=== PATIENT | male | born 1965 | race Caucasian/White ===

== ENCOUNTER → 2017-02-10 | Outpatient (CLI) | payer OTHER ==
[~2017-02-10] MED LIST: GADAVIST IV PRN; IBUP-1050 PO
--- NOTE | 2017-02-10 09:36 | DIAGNOSTIC IMAGING REPORT ---
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 COMPARISON STUDY: None. FINDINGS: Visualized intracranial internal carotid arteries, distal vertebral arteries, and basilar artery are widely patent. There is no significant stenosis, occlusion, or aneurysm seen within the bilateral ACAs, MCAs, or roof slater. Incidental note is made of a persistent right posterior circulation which is considered to be a normal variant. IMPRESSION: No significant stenosis, occlusion, or aneurysm within the nondalton of [place]. Electronically signed by: Roberto Carlos Russo M.D. 02/10/2017 9:35 AM Dictated Date/Time: 02/10/2017 9:31 AM
--- NOTE | 2017-02-10 10:00 | DIAGNOSTIC IMAGING REPORT ---
MRI OF THE BRAIN COMBO CLINICAL HISTORY: Left oculomotor nerve palsy. COMPARISON STUDY: No priors. TECHNIQUE: MRI of the brain was performed utilizing various T1 and T2-weighted sequences in the axial, sagittal, and coronal planes. Contrast-enhanced sequences were acquired following the administration of 12.5 cc of Gadavist. FINDINGS: Brain parenchyma: There are scattered tiny foci of periventricular microangiopathic change. The brain parenchyma is otherwise normal in appearance. There is no hemorrhage or mass effect. There is no restricted diffusion to suggest acute ischemia. A small developmental venous anomaly is incidentally noted in the right basal ganglia. No enhancing mass lesion is identified on the postcontrast images. Salomon-white matter differentiation is preserved. No extra-axial fluid collection is seen. The cerebellar tonsils are normal in configuration. Ventricles, sulci, and cisterns: Normal in configuration. Pituitary and sella: Unremarkable. Intracranial vasculature: Normal flow voids are maintained at the skull base. Orbits: The bony orbits are grossly intact. Orbital contents are normal in appearance. Sinuses and mastoids: A large retention cyst in the right maxillary antrum. Mucosal thickening is present within both maxillary antra. An air-fluid level is noted on the left. Mild to moderate mucosal thickening is seen within the ethmoid sinuses. Trace mucosal thickening is seen within the frontal sinuses. The mastoid air cells are clear. Calvarium: Unremarkable. Cervical cord: Partially visualized cervical spinal cord is normal in morphology and signal intensity. IMPRESSION: 1. No acute intracranial abnormality. 2. Paranasal sinus disease as above. Electronically signed by: Elias Villeda M.D. 02/10/2017 9:59 AM Dictated Date/Time: 02/10/2017 9:56 AM
== END | disposition home or self-care (01) ==
LOC: C.MRIBC 07:39
PROVIDERS: ATTEND Ophthalmology
DX: H49.02 Third [oculomotor] nerve palsy, left eye (principal)

== ENCOUNTER → 2017-02-12 | Outpatient (CLI) | payer OTHER ==
--- NOTE | 2017-02-12 08:33 | DIAGNOSTIC IMAGING REPORT ---
MRI OF THE ORBITS WITH AND WITHOUT CONTRAST CLINICAL HISTORY: Left 3rd nerve palsy. Double vision. COMPARISON STUDY: MRI of the brain February 10, 2017. TECHNIQUE: Utilizing a 1.5 Jennifer magnet and dedicated coil, multiplanar, multiecho imaging of the orbits was performed pre and postcontrast administration. Thin cut imaging was performed. Injection of 11 cc of Gadavist IV was uneventful. FINDINGS: A suspected mucous retention cyst within the right maxillary sinus is partially imaged. There is mucosal thickening with layering secretions within the left maxillary sinus. There is moderate mucosal thickening of the ethmoid sinuses. The globes are intact. There is no orbital mass. Extraocular muscles are symmetric and within normal limits. No abnormal optic nerve enhancement is present. The optic chiasm normal. Infundibulum is midline. Note is again made of a suspected developmental venous anomaly within the right basal ganglia. Brain volume is normal. Ventricular system is normal. The brain is better depicted on prior MRI of the brain. A few periventricular T2 hyperintense foci are noted. These are better depicted on prior MRI. IMPRESSION: 1. Unremarkable MRI of the orbits. 2. Paranasal sinus disease, as described above. Electronically signed by: Chris Sutherland M.D. 02/12/2017 8:31 AM Dictated Date/Time: 02/12/2017 8:17 AM
== END | disposition home or self-care (01) ==
PROVIDERS: ATTEND Ophthalmology
DX: H49.02 Third [oculomotor] nerve palsy, left eye (principal); J32.9 Chronic sinusitis, unspecified

== ENCOUNTER 2018-02-03 11:53 | Emergency (ER) | payer OTHER ==
[~2018-02-03] VITALS: Ht 182.9 cm; Wt 113.2 kg
[~2018-02-03 11:53] MED LIST changes: -GADAVIST IV PRN
[2018-02-03 11:55] VITALS: TEMP 36.6; Ht 182.9 cm; Wt 113.2 kg
[2018-02-03 11:59] VITALS: O2SAT 98
[2018-02-03] MEDS ORDERED: ASPIRIN 81 MG CHEW PO STA (12:17)
[2018-02-03 12:43] LABS: BASO % 0.5 %; BASO ABS # 0.03 K/uL (0-0.2); EOS % 2.3 %; EOS ABS # 0.13 K/uL (0-0.5); HEMATOCRIT 45.9 % (42-52); HEMOGLOBIN 15.8 g/dL (14.0-18.0); IG# 0.01 K/uL (0.00-0.02); LYMPH % 31.7 %; LYMPH ABS # 1.77 K/uL (1.2-3.4); MEAN CELL VOLUME 90.7 fL (80-100); MEAN CORPUSCULAR HEMOGLOBIN 31.2 pg (25-34); MEAN CORPUSCULAR HGB CONC 34.4 g/dl (32-36); MEAN PLATELET VOLUME 10.2 fL (7.4-10.4); MONO % 4.7 %; MONO ABS # 0.26 K/uL (0.11-0.59); NEUT % 60.6 %; NEUT ABS # 3.39 K/uL (1.4-6.5); PLATELET COUNT 298 K/uL (130-400); RED CELL DISTRIBUTION WIDTH CV 12.5 % (11.5-14.5); WHITE BLOOD COUNT 5.59 K/uL (4.8-10.8)
--- NOTE | 2018-02-03 12:50 | DIAGNOSTIC IMAGING REPORT ---
CHEST 2 VIEWS ROUTINE HISTORY: Right. Heart palpitations COMPARISON: None. FINDINGS: The lungs are clear. Cardiac silhouette is top normal in size. No pleural effusions. No pneumothorax. IMPRESSION: No acute process. Electronically signed by: Roberto Carlos Russo M.D. 02/03/2018 12:49 PM Dictated Date/Time: 02/03/2018 12:47 PM
--- NOTE | 2018-02-03 12:55 | EMERGENCY ROOM VISIT NOTE ---
History Report prepared by Raymundo: Devon Bennett Under the Supervision of: Dr. Damion Andrews M.D. First contact with patient: 12:00 Chief Complaint: PALPITATIONS Stated Complaint: HEART PALPITATIONS Nursing Triage Summary: Pt states, "I am having heart palpitations since Mon. It feels like blood rushing mostly in my neck." Intermittent. Denies cp, sob or lightheadedness. History of Present Illness The patient is a 52 year old male who presents to the Emergency Room with complaints of intermittent palpitations for the past three days. The patient states that he feels like he got a palpitation, and then he would get flushed afterwards. The patient states he feels like when he lays down he gets red, his heart is pumping harder, and he feels a "release" then it all goes away. The patient denies any chest pain, shortness of breath, loss of consciousness, hematuria, black stools, bloody stools, abdominal pain, recent long car or plane travel, fever, hormone use, and heavy lifting. The patient states that he does not have any medical problems, though he states that he used to be on cholesterol medications up until a few months ago. The patient states that he does not currently feel stressed. Source of History: patient Onset: three days ago Position: other (heart) Quality: other (palpitatoins) Timing: intermittent Associated Symptoms: No LOC, No fevers, No chest pain, No SOB, No abdominal pain Review of Systems See HPI for pertinent positives and negatives. A total of ten systems were reviewed and were otherwise negative. Past Medical & Surgical Medical Problems: (1) No Known Active Medical Problems Family History Patient reports no known family medical history. Social History Smoking Status: Current Some Day Smoker Marital Status: Housing Status: lives with family Occupation Status: employed Current/Historical Medications No Active Prescriptions or Reported Meds Allergies Coded Allergies: No Known Allergies (Unverified , 02/03/18) Physical Exam Vital Signs Date Time Temp Pulse Resp B/P (MAP) Pulse Ox O2 Delivery O2 Flow Rate FiO2 02/03/18 17:06 73 16 139/92 95 02/03/18 16:08 67 02/03/18 14:33 69 15 96 02/03/18 14:32 176/94 02/03/18 14:31 170/98 02/03/18 14:28 68 17 97 3/8/18 14:23 65 20 96 02/03/18 14:18 71 20 96 02/03/18 14:16 165/109 02/03/18 14:13 67 19 96 02/03/18 14:08 68 21 96 02/03/18 14:03 75 21 02/03/18 13:58 67 17 98 02/03/18 13:53 64 16 97 02/03/18 13:48 67 21 98 02/03/18 13:46 162/106 02/03/18 13:43 70 18 97 02/03/18 13:38 72 17 95 02/03/18 13:33 66 18 96 02/03/18 13:31 163/103 02/03/18 13:28 68 20 97 02/03/18 13:23 68 17 96 02/03/18 13:18 73 17 96 02/03/18 13:13 69 19 97 02/03/18 13:08 74 17 95 02/03/18 13:03 70 18 97 02/03/18 12:58 69 18 95 02/03/18 12:53 65 19 97 02/03/18 12:48 69 17 95 02/03/18 12:46 116/91 02/03/18 12:38 68 16 95 02/03/18 12:33 67 21 95 02/03/18 12:30 158/100 02/03/18 12:28 76 20 150/99 95 02/03/18 12:23 73 21 96 02/03/18 12:18 74 18 99 02/03/18 12:17 78 02/03/18 12:13 83 21 93 02/03/18 12:07 171/102 02/03/18 11:59 98 Room Air 02/03/18 11:55 36.6 96 18 202/114 98 Room Air Physical Exam Physical Exam GENERAL: He is oriented to person, place, and time. He appears well-developed and well-nourished. He does not appear distressed. ____ HENT: Exam performed. Head: Normocephalic and atraumatic. Right Ear: External ear normal. No mastoid tenderness. Left Ear: External ear normal. No mastoid tenderness. Mouth/Throat: The oropharynx is clear and moist. No trismus in the jaw. No dental abscesses or uvula swelling. No oropharyngeal exudate or tonsillar abscesses. ____ EYES: Conjunctivae and EOM are normal. Pupils are equal, round, and reactive to light. Right eye exhibits no discharge. Left eye exhibits no discharge. No scleral icterus. ____ NECK: Normal range of motion. Neck supple. No JVD present. No spinous process tenderness present. No carotid bruit present. No rigidity. No tracheal deviation and normal range of motion present. No Brudzinski's sign and no Kernig 's sign noted. ____ CV: Normal rate, regular rhythm, normal heart sounds and intact distal pulses. There is no peripheral edema. Palpable radial pulses bue. ____ PULM/CHEST: Effort normal and breath sounds normal. No respiratory distress. No stridor. He has no wheezes. He has no rales. Chest Wall: He exhibits no tenderness. ____ ABD: The abdomen is soft. Bowel sounds are normal. He has no distension. No mass is present. There is no tenderness. There is no rebound, no guarding, no Johnson's sign and no tenderness at McBurney's point. Rovsig negative MUSC/SKEL: Normal range of motion. There is no peripheral edema, tenderness or deformity. LYMPH: No cervical adenopathy. ____ NEURO: He is alert and oriented to person, place, and time. He has normal strength. No cranial nerve deficit or sensory deficit. Coordination and gait normal. GCS eye subscore is 4. GCS verbal subscore is 5. GCS motor subscore is 6. Cerebellar tests wnl. ____ SKIN: Skin is warm and dry. He is not diaphoretic. ____ PSYCH: He has a normal mood and affect. His behavior is normal. Judgment and thought content normal. ____ Medical Decision & Procedures ER Provider Diagnostic Interpretation: Radiology results as stated below per my review and radiologist interpretation: CHEST 2 VIEWS ROUTINE HISTORY: Right. Heart palpitations COMPARISON: None. FINDINGS: The lungs are clear. Cardiac silhouette is top normal in size. No pleural effusions. No pneumothorax. IMPRESSION: No acute process. Electronically signed by: Roberto Carlos Russo M.D. 02/03/2018 12:49 PM Dictated Date/Time: 02/03/2018 12:47 PM Laboratory Results 02/03/18 12:25 Red Blood Count 5.06, Mean Corpuscular Volume 90.7, Mean Corpuscular Hemoglobin 31.2, Mean Corpuscular Hemoglobin Concent 34.4, Mean Platelet Volume 10.2, Neutrophils (%) (Auto) 60.6, Lymphocytes (%) (Auto) 31.7, Monocytes (%) (Auto) 4.7, Eosinophils (%) (Auto) 2.3, Basophils (%) (Auto) 0.5, Neutrophils # (Auto) 3.39, Lymphocytes # (Auto) 1.77, Monocytes # (Auto) 0.26, Eosinophils # (Auto) 0.13, Basophils # (Auto) 0.03 02/03/18 12:25 Test 02/03/18 12:25 02/03/18 15:56 White Blood Count 5.59 K/uL (4.8-10.8) Red Blood Count 5.06 M/uL (4.7-6.1) Hemoglobin 15.8 g/dL (14.0-18.0) Hematocrit 45.9 % (42-52) Mean Corpuscular Volume 90.7 fL (80-100) Mean Corpuscular Hemoglobin 31.2 pg (25-34) Mean Corpuscular Hemoglobin Concent 34.4 g/dl (32-36) Platelet Count 298 K/uL (130-400) Mean Platelet Volume 10.2 fL (7.4-10.4) Neutrophils (%) (Auto) 60.6 % Lymphocytes (%) (Auto) 31.7 % Monocytes (%) (Auto) 4.7 % Eosinophils (%) (Auto) 2.3 % Basophils (%) (Auto) 0.5 % Neutrophils # (Auto) 3.39 K/uL (1.4-6.5) Lymphocytes # (Auto) 1.77 K/uL (1.2-3.4) Monocytes # (Auto) 0.26 K/uL (0.11-0.59) Eosinophils # (Auto) 0.13 K/uL (0-0.5) Basophils # (Auto) 0.03 K/uL (0-0.2) RDW Standard Deviation 41.0 fL (36.4-46.3) RDW Coefficient of Variation 12.5 % (11.5-14.5) Immature Granulocyte % (Auto) 0.2 % Immature Granulocyte # (Auto) 0.01 K/uL (0.00-0.02) Anion Gap 3.0 mmol/L (3-11) Est Creatinine Clear Calc Drug Dose 129.0 ml/min Estimated GFR () 115.6 Estimated GFR (Non- 99.7 BUN/Creatinine Ratio 10.4 (10-20) Calcium Level 9.1 mg/dl (8.5-10.1) Troponin I < 0.015 ng/ml (0-0.045) Laboratory results reviewed by me Medications Administered Medications (Trade) Dose Ordered Sig/Pratima Route Start Time Stop Time Status Last Admin Dose Admin Aspirin (Aspirin Chew) 324 mg NOW STAT PO 02/03/18 12:17 02/03/18 12:19 DC 02/03/18 12:25 324 MG ECG Per My Interpretation Indication: palpitations Rate (beats per minute): 88 Rhythm: sinus rhythm Findings: 1st degree AV block, other (MN interval increased at 224. QRS and QTc within normal limits. No ST elevation or depression.) ED Course 1200: The patient was evaluated in room B11. A complete history and physical exam was performed. 1217: Aspirin 324mg PO 1312: I reevaluated the patient, and he states that he feels much better. He is not having any chest pain or shortness of breath. Labs, x-ray and EKG are wnl. Offered observation by a hospitalist for a stress test and to rule out ACS. He prefers to follow up as an outpatient if his second troponin is negative. 1710: VSS. Troponin was in normal limits. Patient states that he felt better and is no longer having palpitations. Patient will follow up with his PCP for scheduling and outpatient stress test. DISCHARGE - Plan of care discussed with patient and questions answered. The patient was given both verbal and printed discharge instructions. The patient verbalized understanding and ability to comply. The patient is to seek outpatient follow up as noted in the discharge instructions. The patient verbalized understanding and ability to comply. The patient is discharged in stable condition. The patient was instructed to return for worsening symptoms. Medical Decision vss. I reevaluated the patient, and he states that he feels much better. He is not having any chest pain or shortness of breath. Labs, x-ray and EKG are wnl. Offered observation by a hospitalist for a stress test and to rule out ACS. Patient will follow up with his PCP for scheduling and outpatient stress test. DISCHARGE - Plan of care discussed with patient and questions answered. The patient was given both verbal and printed discharge instructions. The patient verbalized understanding and ability to comply. The patient is to seek outpatient follow up as noted in the discharge instructions. The patient verbalized understanding and ability to comply. The patient is discharged in stable condition. The patient was instructed to return for worsening symptoms. Medication Reconcilliation Current Medication List: was personally reviewed by me Blood Pressure Screening Patient's blood pressure: Elevated blood pressure Blood pressure disposition: Referred to PCP Impression Primary Impression: Palpitations Additional Impression: Hypertension Scribe Attestation The scribe's documentation has been prepared under my direction and personally reviewed by me in its entirety. I confirm that the note above accurately reflects all work, treatment, procedures, and medical decision making performed by me. The chart was completed utilizing [employer] Speech voice recognition software. Grammatical errors, random word insertions, pronoun errors, and incomplete sentences are an occasional consequence of this system due to software limitations, ambient noise, and hardware issues. Any formal questions or concerns about the content, text, or information contained within the body of this dictation should be directly addressed to the physician for clarification. Departure Information Dispostion Home / Self-Care Prescriptions No Active Prescriptions or Reported Meds Referrals Merced Massey M.D. (MEDICAL) (PCP) Forms HOME CARE DOCUMENTATION FORM, IMPORTANT VISIT INFORMATION, WORK / SCHOOL INSTRUCTIONS Patient Instructions Heart Palpitations, Hypertension Control, My [facility] Health Problem Qualifiers Additional Impression: Hypertension Hypertension type: unspecified Qualified Codes: I10 - Essential (primary) hypertension
[2018-02-03 12:56] LABS: BLOOD UREA NITROGEN 9 mg/dl (7-18); CALCIUM 9.1 mg/dl (8.5-10.1); CARBON DIOXIDE 28 mmol/L (21-32); CREATININE 0.89 mg/dl (0.60-1.40); GLUCOSE 102 mg/dl (70-99); POTASSIUM 3.7 mmol/L (3.5-5.1); SODIUM 136 mmol/L (136-145)
[2018-02-03 17:06] VITALS: BP 139/92; PULSE 73; O2SAT 95
== END 2018-02-03 17:07 | disposition home or self-care (01) ==
LOC: C.EDB 11:54
DX: R00.2 Palpitations (principal); F17.210 Nicotine dependence, cigarettes, uncomplicated; I10 Essential (primary) hypertension

== ENCOUNTER → 2018-03-07 | Outpatient (CLI) | payer OTHER ==
[2018-03-07 13:10] LABS: ALT/SGPT 24 U/L (12-78); BLOOD UREA NITROGEN 11 mg/dl (7-18); CALCIUM 8.8 mg/dl (8.5-10.1); CARBON DIOXIDE 27 mmol/L (21-32); CHOLESTEROL 279 mg/dl (0-200); CREATININE 0.87 mg/dl (0.60-1.40); GLUCOSE 109 mg/dl (70-99); POTASSIUM 4.2 mmol/L (3.5-5.1); SODIUM 138 mmol/L (136-145)
[2018-03-07 13:14] LABS: ALKALINE PHOSPHATASE 85 U/L (45-117); AST/SGOT 15 U/L (15-37); LDL CHOLESTEROL CALCULATED 193 mg/dl; TOTAL PROTEIN 7.3 gm/dl (6.4-8.2)
== END | disposition home or self-care (01) ==
LOC: C.LABBFT 07:57
PROVIDERS: ATTEND Family Medicine
DX: E78.5 Hyperlipidemia, unspecified (principal); Z12.5 Encounter for screening for malignant neoplasm of prostate

== ENCOUNTER 2024-09-02 22:34 | Inpatient (IN) ==
--- OUTSIDE RECORDS SUMMARY | 2024-09-02 22:40 | External Medical Summary | Summary of Care ---
Author Name Unknown Organization [facility] Address [address] [place] [address] Phone [phone] Care Team Providers Care Fur Weigher Name Role Phone Rocael Moore MD Primary Care Provider [phone] Encounter Details Date Type Department Care Team (Late st Contact Info) Description 06/28/[address] [facility] [address] [place] [address] Rocael Moore MD [address] [place] [address] Allergies No known active allergiesdocumented as of this encounter (statuses as of 06/28/2024) Medications Medication Sig Dispensed Refills Start Date End Date Status Aspirin 81 MG Oral Tablet Delayed Release Take 1 Tablet by mouth in the morning. Active Atorvastatin Calcium 40 MG Oral Tablet (Lipitor)Indications:A ortic valve insufficiency, etiology of cardiac valve disease unspecified,Dyslipidem ia, goal LDL below 130 Take 1 Tablet by mouth in the morning. 90 Tablet 3 12/20/2023 Active Lisinopril 30 MG Oral TabletIndications:Aort ic valve insufficiency, etiology of cardiac valve disease unspecified Take 1 Tablet by mouth at bedtime. 90 Tablet 3 03/27/2024 Active documented as of this encounter (statuses as of 06/28/2024) Active Problems Problem Noted Date Diagnosed Date Cigar smoker 02/10/2017 Aortic insufficiency 08/22/2014 Dyslipidemia, goal LDL below 130 08/22/2014 documented as of this encounter (statuses as of 06/28/2024) Resolved Problems Problem Noted Date Diagnosed Date Resolved Date Obesity, Class I, BMI 30.0-3 4.9 (see actual BMI) 02/10/2017 02/11/2018 Overview: bmi= 33.25 02/10/17 Elevated blood pressure, situational 02/10/2017 02/11/2018 INFORMATION 01/27/2017 08/10/2018 Overview: 10 year cardiovascular risk 20.5% Obesity, Class I, BMI 30.0-3 4.9 (see actual BMI) 08/22/2014 02/11/2018 Overview: bmi= 31.86 08/22/14 Screening for cardiovascular condition 08/22/2014 02/11/2018 OBESITY, BMI 30-34 (SEE ACTUAL BMI) 02/20/2010 02/11/2018 Overview: Per Obesity Taxonomy Acute URI 10/08/2009 12/16/2009 Overview: Modified by Acute Dx Protocol #3. Acute sinusitis 10/08/2009 12/16/2009 Overview: Modified by Acute Dx Protocol #3. Routine medical exam 01/18/2008 014 Overweight (BMI 25.0-29.9) 01/18/2008 0 02/20/2010 Overview: Per Obesity Taxonomy Undiagnosed cardiac murmurs 07/31/2003 01/18/2008 Aortic valve disorder 06/11/20032013 Overview: insufficiency Dyslipidemia, goal LDL below 130 02/11/2018 documented as of this encounter (statuses as of 06/28/2024) Immunizations Name Administration Dates Next Due COVID-19 mRNA, LNP-s, No Pre serve, 2-Dose Series (TrackaPhone) 04/10/2021,03/20/2021 documented as of this encounter Social History Tobacco Use Types Packs/Day Years Used Date Smoking Tobacco: Former Cigars Smokeless Tobacco: Current Chew Last attempted to quit: 11/09/2007 Comments:quit chewing tobacc o 11/09/07 Alcohol Use Standard Drinks/Week Comments Not Currently 0 (1 standard drink = 0.6 oz pur e alcohol) rare PHQ-2 Answer Date Recorded PHQ Adult Total Score 0 12/17/2022 Hunger Vital Sign Answer Date Recorded Within the past 12 months, y ou worried that your food would run out before you got the money to buy more. Never true 12/17/19 23 Within the past 12 months, t he food you bought just didn't last and you didn't have money to get more. Never true 12/17/2022 Sex and Gender Information Value Date Recorded Sex Assigned at Male 02/05/2023 10:03 AM EST Gender Identity Male 02/05/2023 10:03 AM EST Sexual Orientation Straight 02/05/2023 10 :03 AM EST Job Start Date Occupation Industry Not on file Not on file Not on file documented as of this encounter Miscellaneous Notes * Telephone Encounter - Dajuan Cruz MED ASSIST - 06/28/2024 9:42 AM EDT Contacted patient and asked if he is still taking atorvastatin, he doesn't need refills documented in this encounter Plan of Treatment Upcoming Encounters Date Type Department Care Team (Late st Contact Info) Description 12/22/2024 12:00 PM EST Office Visit [facility] [address] [place] [address] Clementina Spann PA-C [address] [place] [address] Health Maintenance Due Date Last Done Comments HIV Screening 1982 DTaP,Tdap,and Td Vaccines (1 - Tdap) 1986 Hepatitis B Vaccine (1 of 3 - 19+ 3-dose series) 1986 Cologuard 2012 Fecal Occult Blood Test 2012 Sigmoidoscopy 2012 Zoster Vaccines (1 of 2) 2017 COVID-19 Vaccine ( season) 2023 04/10/2021, 03/20/2021 Influenza Vaccine (FLU shot) (#1) 2024 Depression Screening 12/20/2024 12/20/2023 Colonoscopy 12/08/2025 12/08/2022 Colorectal Cancer Screening 12/08/2025 Diabetes Screening 12/27/2026 12/27/2023, 0 03/15/2023, 12/16/2022, Additional history exists Lipid Panel 12/27/2028 12/27/2023, 11/29, 06/19/2022, Additional history exists Hepatitis C Screening Completed 12/08/2004, 003 HPV (Gardasil) Vaccine Aged Out No lo nger eligible based on patient's age to complete this topic MENINGOCOCCAL (MENACTRA/MENVEO) Aged Out No longer eligible based on patient's age to complete this topic Pneumococcal Vaccine: Pediatrics (0 to 5 Years) and At-Risk Patients (6 to 64 Years) Aged Out No longer eligible based on patient's age to complete this topic documented as of this encounter Medical Devices Not on filedocumented as of this encounter Care Teams Fur Weigher Relationship Specialty Start Date End Date Rocael Moore MD [address] [place] [address] PCP - General Family Medicine 08/10/18 documented as of this encounter
--- OUTSIDE RECORDS SUMMARY | 2024-09-02 22:40 | External Medical Summary | Summary of Care ---
Author Name Unknown Organization [facility] Address [address] [place] [address] Phone [phone] Care Team Providers Care Abrasive Band Winder Name Role Phone Erich Beaulieu MD Primary Care Provider [phone] Encounter Details Date Type Department Care Team (Late st Contact Info) Description 03/27/2024 Refill [facility] [address] [place] [address] Erich Beaulieu MD [address] [place] [address] Aortic valve insufficiency, etiology of cardiac valve disease unspecified Allergies No known active allergiesdocumented as of this encounter (statuses as of 03/27/2024) Medications Medication Sig Dispensed Refills Start Date End Date Status Aspirin 81 MG Oral Tablet Delayed Release Take 1 Tablet by mouth in the morning. 0 Active Atorvastatin Calcium 40 MG Oral Tablet (Lipitor)Indicatio ns:Aortic valve insufficiency, etiology of cardiac valve disease unspecified,Dyslip idemia, goal LDL below 130 Take 1 Tablet by mouth in the morning. 90 Tablet 3 12/20/2023 Active Lisinopril 30 MG Oral TabletIndications: Aortic valve insufficiency, etiology of cardiac valve disease unspecified Take 1 Tablet by mouth at bedtime. 90 Tablet 3 03/27/2024 Active Lisinopril 30 MG Oral TabletIndications: Aortic valve insufficiency, etiology of cardiac valve disease unspecified Take 1 Tablet by mouth at bedtime. 30 Tablet 11 12/20/2023 03/27/2024 Discontinued (Refill) documented as of this encounter (statuses as of 03/27/2024) Active Problems Problem Noted Date Diagnosed Date Cigar smoker 02/10/2017 Aortic insufficiency 08/22/2014 Dyslipidemia, goal LDL below 130 08/22/2014 documented as of this encounter (statuses as of 03/27/2024) Resolved Problems Problem Noted Date Diagnosed Date [...] as of this encounter (statuses as of 03/27/2024) Immunizations Name Administration Dates Next Due COVID-19 mRNA, LNP-s, No Pre serve, 2-Dose Series ([employer] - [place]) 04/10/2021,03/20/2021 documented as of this encounter Social [...] encounter Miscellaneous Notes * Telephone Encounter - Erich Beaulieu MD - 03/27/2024 10:04 PM EDTSigned Prescriptions: Disp Refills Lisinopril 30 MG Oral Tablet 90 Tab*3 Sig: Take 1 Tablet by mouth at bedtime.Authorizing Provider: ERICH BEAULIEU documented in this encounter Plan of Treatment Upcoming Encounters Date Type Department Care Team (Late st Contact Info) Description 12/22/2024 12:00 PM EST [address] [address] Clementina Spann PA-C [address] [place] [address] Health Maintenance Due Date Last Done Comments DTaP,Tdap,and Td Vaccines (1 - Tdap) 1986 Hepatitis B (1 of 3 - 19+ 3-dose series) 1986 Cologuard 2012 Fecal Occult Blood Test 2012 Sigmoidoscopy 2012 Zoster Vaccines (1 of 2) 2017 COVID-19 Vaccine (3 - 2022- season) 2023 04/10/2021, 03/20/2021 Influenza Vaccine (FLU shot) (Season Ended) 2024 Depression Screening 12/20/2024 12/20/2023 Colonoscopy 12/08/2025 12/08/2022 Colorectal Cancer Screening 12/08/2025 Diabetes Screening 12/27/2026 12/27/2023, 0 03/15/2023, 12/16/2022, Additional history exists Lipid Panel 12/27/2028 12/27/2023, 11/29, 06/19/2022, Additional history exists GARDASIL-HPV IMMUNIZATION SERIES Aged Out No longer eligible based on [...] Not on filedocumented as of this encounter Visit Diagnoses Diagnosis Aortic valve insufficiency, etiology of cardiac valve disease unspecified documented in this encounter Care Teams Abrasive Band Winder Relationship Specialty Start Date End Date Erich Beaulieu MD [address] [place] [facility] [place] [address] PCP - General Family Medicine 08/10/18 documented as of this encounter
--- NOTE | 2024-09-02 22:43 | Emergency Department Note ---
Impression & Plan Atrial fibrillation with rapid ventricular response ED Provider Note CHIEF COMPLAINT: Elevated blood pressure, fast heart rate HISTORY OF PRESENTING ILLNESS: This 59-year-old male patient presents to the emergency department with his for evaluation of elevated blood pressure and an elevated heart rate. Symptoms started this afternoon around 3 pm. He states that his heart rate was 119 and his blood pressure was 168/109. The patient takes lisinopril 20 mg QD for his blood pressure and took his medication today. He denies any chest pain, shortness of breath, abdominal pain, nausea, vomiting, headache, visual changes, dizziness, change in his personality, or other symptoms. He has been burping a little more since the symptoms started. He takes 81 mg ASA, but no other blood thinners. He took his ASA today. He denies any personal history of heart problems other than HTN. He takes atorvastatin for high cholesterol. He chews tobacco, but denies smoking or vaping. His maternal grandfather of an DC at 53 y/o and maternal uncle with bypass surgery at 53 y/o. The patient denies recent long car or plane rides or recent injury/trauma/surgery. Denies any personal history of blood clots or bleeding disorders. Denies any family history of blood clots or bleeding disorders. Denies any hormonal medication use. Denies any hemoptysis. Denies leg/calf pain or swelling. REVIEW OF SYSTEMS: See HPI for pertinent positives and pertinent negatives. ALLERGIES: NKDA MEDICATIONS: Lisinopril, ASA, atorvastatin PAST MEDICAL HISTORY: HTN, high cholesterol PHYSICAL EXAM: VITALS: Vitals are noted on the nurse's note and reviewed by myself. GENERAL: Non toxic, no acute distress, non-diaphoretic. SKIN: Capillary refill <2 sec. EYES: PERRLA. EOMI. Conjunctivae without injection, sclerae without icterus. NOSE: Patent without discharge. MOUTH: Mucous membranes moist. Uvula midline. Airway patent. NECK: Supple without nuchal rigidity. HEART: Irregularly irregular rhythm without murmurs gallops or rubs. LUNGS: Clear to auscultation bilaterally without wheezes, rales or rhonchi. No retractions or accessory muscle use. ABDOMEN: Positive bowel sounds x 4. Normal tympanic percussion. Soft, nontender. No masses or organomegaly. Johnson sign negative. No guarding or rebound tenderness. No focal RLQ or LLQ tenderness. MUSCULOSKELETAL: No gross musculoskeletal defects. Bilateral lower extremities are nontender to palpation. No erythema, edema, warmth, or cording. Peripheral pulses 2+ and equal in the bilateral upper and lower extremities. NEURO: Patient was alert and oriented. No focal neurological deficits. DIFFERENTIAL DIAGNOSIS: Differential diagnosis includes angina, DC, pericarditis, myocarditis, aortic dissection, pleurisy, pneumothorax, PE, pneumonia, pneumomediastinum, esophagitis, esophageal spasm, GERD, perforated esophagus, perforated duodenal/gastric ulcer, pancreatitis, cholecystitis, costochondritis, musculoskeletal, bronchitis, URI, or others. ED COURSE AND MEDICAL DECISION MAKING: HISTORY FROM INDEPENDENT HISTORIAN: Additional history was obtained from the patient's . MEDICATIONS GIVEN: 500 mL normal saline solution bolus. Lopressor 5 mg IV. MONITOR: Continuous quality assurance monitor final: Order was placed for continuous quality assurance monitor final. Patient was placed on the quality assurance monitor final and continuous pulse ox. Patient was noted to be in an irregular rhythm at an initial rate of 105 bpm per my interpretation. EKG: EKG was interpreted by myself as atrial fibrillation versus atrial flutter at 99 bpm. INTERPRETATION OF LABS: I interpreted the labs with full lab results as below in the lab section of this note. Pertinent lab results discussed in the MDM section below. INTERPRETATION OF IMAGING: Chest x-ray per my interpretation was negative for acute cardiopulmonary etiology. Radiology report is still pending. CONSULTATIONS: On-call hospitalist MDM SUMMARY: The patient was seen during a time of extreme volume and extreme acuity. Nursing triage protocols were initiated with IV lock, labs, and/or imaging studies conducted by protocol in the triage area. The patient was initially evaluated in a triage room and then re-evaluated once they were taken back to an exam room. The patient presents emergency department for evaluation of elevated heart rate and elevated blood pressure since 3 PM this afternoon. He denies any other symptoms. He takes lisinopril 20 mg once a day and atorvastatin along with his baby aspirin. He took his medication as prescribed today. On exam, he did have an irregularly irregular rhythm. EKG interpreted by myself and Dr. Manley showed changes consistent with atrial fibrillation versus possible atrial flutter. The patient states that this is a new finding and he has no history of atrial fibrillation or atrial flutter. The patient's father has a history of A-fib. The patient is not currently on any blood thinners. CBC without leukocytosis, anemia, or thrombocytopenia. Coags were normal. D- dimer was normal. Glucose 136, but CMP otherwise normal. Magnesium normal. TSH normal. Lipase normal. High-sensitivity troponin normal. Chest x-ray per my interpretation was negative for acute cardiopulmonary etiology with radiology report still pending. I had a meaningful discussion about this patient with Dr. Manley who agrees with my assessment and the treatment plan. Due to the patient's new onset of A-fib versus a flutter we feel the patient requires admission for further evaluation and treatment. I spoke with the on-call hospitalist who agrees to admit the patient for further management. Please refer to their dictation for further details. The patient's care was transferred in stable condition. DIAGNOSIS: Atrial fibrillation versus possible atrial flutter Past Med/Surg History Problem List (Updated 09/03/24 @ 05:33 by Keke Ramos PA-C) Atrial fibrillation with rapid ventricular response (Acute) History of colon polyps Encounter for pre-operative examination No known health problems Medical History History of COVID-19 fall 2021, home test, not hosp; slight fever for 12 hours, fatigue>resolved in 2 days Hyperlipidemia Hypertension Surgical History History of wisdom tooth extraction under local Hx of colonoscopy Family History Grandfather (Paternal) Family hx of colon cancer Other No family history of adverse response to anesthesia Social History Smoking Status: Never smoker Tobacco Type: Smokeless Tobacco (Dip or Chew) Cigarettes Per Day: quit cigars a year ago; Second Hand Exposure: No; Do You Dip or Chew Tobacco: Yes (1 can/1 day; advised); Hx Alcohol Use: Yes Alcohol type: beer Hx Substance Use: No Preferred Language: Paraguayan Communication Ability: Effective Manufacturing Assembler Required: No Beliefs That Will Affect Care: None Current Living Situation: Spouse Current Living Situation Comment: Lives with and 2 daughters Other Information That Helps Us Care for You: No Feels Safe at Home: Yes Safety Concerns: Feels Safe At This Time Assistive Devices: Glasses Allergies Allergies Allergy/AdvReac Type Severity Reaction Status Date / Time No Known Allergies Allergy Verified 09/03/24 01:36 Home Meds Home Medications Medication Instructions Recorded Confirmed lisinopril 20 mg tablet 20 mg PO PM 12/08/22 09/03/24 aspirin 81 mg tablet,delayed 81 mg PO PM 07/03/23 09/03/24 release atorvastatin 40 mg tablet 40 mg PO HS 09/03/24 09/03/24 Results & Data (ED) Vital Signs Vital Signs - 24 hr 09/02/24 22:36 09/03/24 00:03 09/03/24 00:11 Temperature 36.3 C L Temperature Source Temporal Artery Scan Pulse Rate 105 H 93 H Pulse Rate [Apical] 91 H Pulse Rate from SpO2 Sensor Respiratory Rate 18 18 Respiratory Effort / Characteristics Non-Labored Non-Labored Spontaneous Respiratory Depth Normal Normal Respiratory Pattern Regular Regular Blood Pressure 152/92 H Blood Pressure [Right Arm] 164/117 H Blood Pressure Mean 112 Blood Pressure Mean [Right Arm] 132 Blood Pressure Position [Right Arm] Sitting Pulse Oximetry 97 96 Oxygen Delivery Method Room Air Room Air Sepsis Recent Fever Within 48 Hours No Sepsis New/Unexplained Change in Mental Status N/A Sepsis Action Taken by Nursing No Action Required 09/03/24 00:12 09/03/24 00:25 09/03/24 00:30 Temperature Temperature Source Pulse Rate 86 92 H 82 Pulse Rate [Apical] Pulse Rate from SpO2 Sensor Respiratory Rate 20 16 Respiratory Effort / Characteristics Respiratory Depth Respiratory Pattern Blood Pressure 164/117 H 144/112 H Blood Pressure [Right Arm] Blood Pressure Mean 122 Blood Pressure Mean [Right Arm] Blood Pressure Position [Right Arm] Pulse Oximetry 97 94 Oxygen Delivery Method Room Air Room Air Sepsis Recent Fever Within 48 Hours Sepsis New/Unexplained Change in Mental Status Sepsis Action Taken by Nursing 09/03/24 00:45 09/03/24 00:45 09/03/24 01:00 Temperature Temperature Source Pulse Rate 71 73 Pulse Rate [Apical] Pulse Rate from SpO2 Sensor 88 Respiratory Rate Respiratory Effort / Characteristics Respiratory Depth Respiratory Pattern Blood Pressure 161/109 H 161/109 H 167/106 H Blood Pressure [Right Arm] Blood Pressure Mean 121 126 Blood Pressure Mean [Right Arm] Blood Pressure Position [Right Arm] Pulse Oximetry 95 97 Oxygen Delivery Method Room Air Room Air Sepsis Recent Fever Within 48 Hours Sepsis New/Unexplained Change in Mental Status Sepsis Action Taken by Nursing 09/03/24 01:15 09/03/24 01:37 09/03/24 02:00 Temperature Temperature Source Pulse Rate 74 72 Pulse Rate [Apical] Pulse Rate from SpO2 Sensor 80 Respiratory Rate 18 19 Respiratory Effort / Characteristics Respiratory Depth Respiratory Pattern Blood Pressure 132/98 131/76 133/102 H Blood Pressure [Right Arm] Blood Pressure Mean 109 83 110 Blood Pressure Mean [Right Arm] Blood Pressure Position [Right Arm] Pulse Oximetry 95 93 95 Oxygen Delivery Method Room Air Room Air Room Air Sepsis Recent Fever Within 48 Hours Sepsis New/Unexplained Change in Mental Status Sepsis Action Taken by Nursing Laboratory Data 09/02/24 22:50 09/02/24 22:50 Lab Results 09/02/24 Range/Units 22:50 WBC 9.70 (4.8-10.8) K/ul RBC 4.97 (4.70-6.10) M/uL Hgb 15.3 (14.0-18.0) g/dl Hct 45.4 (42.0-52.0) % MCV 91.3 (80.0-100.0) fL MCH 30.8 (25.0-34.0) pg MCHC 33.7 (32.0-36.0) g/dL RDW Std Deviation 40.2 (36.4-46.3) fL RDW Coeff of Piyush 12.0 (11.5-14.5) % Plt Count 267 (130-400) K/uL MPV 10.1 (9.4-12.4) fL Immature Gran % (Auto) 0.3 % Neut % (Auto) 67.3 % Lymph % (Auto) 24.1 % [place] % (Auto) 6.1 % Eos % (Auto) 1.5 % Baso % (Auto) 0.7 % Neut # (Auto) 6.52 H (1.40-6.50) K/uL Lymph # (Auto) 2.34 (1.20-3.40) K/uL [place] # (Auto) 0.59 (0.11-0.59) K/uL Eos # (Auto) 0.15 (0.00-0.50) K/uL Baso # (Auto) 0.07 (0.00-0.20) K/uL Immature Gran # (Auto) 0.03 (0.01-0.20) K/uL PT 10.3 (9.0-12.0) Seconds INR 0.9 (0.9-1.1) APTT 27 (21-31) Seconds PTT Ratio 1.0 D-Dimer 320 (0-500) ug/L FEU Sodium 137 (136-145) mmol/L Potassium 4.1 (3.5-5.1) mmol/L Chloride 105 (98-107) mmol/L Carbon Dioxide 23 (21-32) mmol/L Anion Gap 9 (3-11) BUN 20 (6-23) mg/dl Creatinine 0.92 (0.6-1.4) mg/dl Est Cr Clr Drug Dosing 106.4 ml/min eGFR 97.02 BUN/Creatinine Ratio 21.7 H (10-20) Glucose 136 H (70-99(Fasting)) mg/dl Calcium 9.4 (8.6-10.3) mg/dl Magnesium 2.3 (1.7-2.4) mg/dl Total Bilirubin 0.5 (0.2-1.0) mg/dl AST 20 (13-39) U/L ALT 25 (7-52) U/L Alkaline Phosphatase 79 (34-104) U/L Troponin I High Sens 14.0 (0-20) pg/ml Total Protein 7.4 (6.0-8.3) gm/dl Albumin 4.6 (3.4-5.0) gm/dl Globulin 2.8 (2.5-4.0) gm/dl Albumin/Globulin Ratio 1.6 (0.9-2) Lipase 38 (11-82) U/L TSH 1.425 (0.300-4.500) uIu/ml Administered Medications Heparin Sodium/Dextrose (Heparin Sodium/Dextrose) 25,000 units in 500 mls @ 31 mls/hr IV .Q16H8M [facility]; Protocol Stop: 10/03/24 02:59 Last Admin: 09/03/24 04:08 Dose: 1,550 units/hr, 31 mls/hr Documented By: JOSUE Co-signed By: MALVIN Discontinued Medications Heparin Sodium/Dextrose (Heparin Iv Adult Wt-Based Standard *No* Initial Bolus Protocol) 1 each IV ONE STA; Protocol Stop: 09/03/24 02:45 Last Admin: 09/03/24 04:13 Dose: Not Given Documented By: CR Sodium Chloride (Nss) 500 mls @ 999 mls/hr IV .Q31M STA Stop: 09/02/24 23:23 Last Infusion: 09/03/24 01:58 Dose: Infused Documented By: Admin: 09/03/24 00:25 Dose: 999 mls/hr Documented By: CHRIS Metoprolol Tartrate (Metoprolol Tartrate 1 Mg/Ml Vial) 5 mg IV NOW STA Stop: 09/02/24 22:59 Last Admin: 09/03/24 00:25 Dose: 5 mg Documented By: CHRIS Discharge Plan Visit Data Chief Complaint: Hypertension Stated Complaint: FAST HR, HIGH BP ED Provider: Elias Manley ED Midlevel Provider: Keke Ramos Discharge Problem: Atrial fibrillation with rapid ventricular response Patient Disposition: Admitted As Inpatient Condition: Good Discharge Instructions Interventions: ED Discharge Assessment Last Done: 09/03/24 03:06
[2024-09-02 23:07] LABS: Basophils # (auto) 0.07 K/uL (0.00-0.20); Basophils % (auto) 0.7 %; Eosinophils # (auto) 0.15 K/uL (0.00-0.50); Eosinophils % (auto) 1.5 %; Hematocrit (blood only) 45.4 % (42.0-52.0); Hemoglobin 15.3 g/dl (14.0-18.0); Immature Granulocytes # (auto) 0.03 K/uL (0.01-0.20); Immature Granulocytes % (auto) 0.3 %; Lymphocytes # (auto) 2.34 K/uL (1.20-3.40); Lymphocytes % (auto) 24.1 %; Mean Corpuscular Hemoglobin 30.8 pg (25.0-34.0); Mean Corpuscular Hgb Conc 33.7 g/dL (32.0-36.0); Mean Corpuscular Volume 91.3 fL (80.0-100.0); Mean Platelet Volume 10.1 fL (9.4-12.4); Monocytes # (auto) 0.59 K/uL (0.11-0.59); Monocytes % (auto) 6.1 %; Neutrophils # (auto) 6.52 K/uL (1.40-6.50); Neutrophils % (auto) 67.3 %; Platelet Count 267 K/uL (130-400); RDW Standard Deviation 40.2 fL (36.4-46.3); Red Blood Count 4.97 M/uL (4.70-6.10)
[2024-09-02 23:24] LABS: Albumin Globulin Ratio 1.6 (0.9-2); Albumin Level 4.6 gm/dl (3.4-5.0); BUN Creatinine Ratio 21.7 (10-20); Bilirubin,Total 0.5 mg/dl (0.2-1.0); Calcium 9.4 mg/dl (8.6-10.3); Creatinine Clr Calc Pharmacy 106.4 ml/min; Globulin 2.8 gm/dl (2.5-4.0); Magnesium 2.3 mg/dl (1.7-2.4); Potassium 4.1 mmol/L (3.5-5.1); Total Protein 7.4 gm/dl (6.0-8.3)
[2024-09-02 23:40] LABS: Thyroid Stimulating Hormone 1.425 uIu/ml (0.300-4.500)
[2024-09-02 23:49] LABS: D Dimer 320 ug/L FEU (0-500); INR 0.9 (0.9-1.1); Partial Thromboplastin Time 27 Seconds (21-31); Prothrombin Time 10.3 Seconds (9.0-12.0)
[2024-09-03] MEDS ORDERED: APIXABAN 5 MG TABLET PO SCH
[2024-09-03] MEDS: METOPROLOL TARTRATE 1 MG/ML VIAL IV STA (00:25)
[2024-09-03] MEDS: SODIUM CHLORIDE 0.9% 500 ML IV STA (00:25)
--- NOTE | 2024-09-03 01:55 | History & Physical Report ---
Date of Service September 03, 2024 Assessment & Plan (1) Atrial fibrillation with rapid ventricular response: Plan: Secondary to uncontrolled hypertension mild AR on TTE 2013 hyperlipidemia, on statin Rx Hyperglycemia rule out DM Past tobacco abuse Admit to PCU Beta-roni for rate control IV heparin for thromboembolic prophylaxis TTE, Cardiology consult re: new onset A-fib Check hemoglobin A1c DVT prophylaxis. Lovenox subcu Full code Text document was generated using [employer] voice recognition software. It may contain grammatical or spelling errors. Kindly contact undersigned for clarification of any documentation item in question. History of Present Illness Chief Complaint: Palpitations Primary Care Provider: Rocale Moore MD History obtained from patient and records. Medical history significant for mild AR, hypertension, hyperlipidemia, past tobacco abuse Patient noted palpitations yesterday afternoon. Denies chest pain, SOB, cough, headache symptoms. 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 No prior episodes as per patient. Heartbeat noted to be fast on home BP machine. Heart rate 120s. Denies inordinate caffeine intake, OTC NSAID intake. Powdered electrolyte beverage consumption the last couple of months. Patient noted to be in rapid A-fib upon arrival at the ER, heart rate 110s. Highest SBP of 170s. IV Lopressor administered at the ER. 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 Allergies Allergy/AdvReac Type Severity Reaction Status Date / Time No Known Allergies Allergy Verified 09/03/24 01:36 Home Medications Medication Instructions Recorded Confirmed Type lisinopril 20 mg tablet 20 mg PO PM 12/08/22 09/03/24 History aspirin 81 mg tablet,delayed 81 mg PO PM 07/03/23 09/03/24 History release atorvastatin 40 mg tablet 40 mg PO HS 09/03/24 09/03/24 History Past Med/Surg History Problem List (Updated 09/03/24 @ 05:33 by Keke Ramos PA-C) Atrial fibrillation with rapid ventricular response (Acute) History of colon polyps Encounter for pre-operative examination No known health problems Medical History History of COVID-19 fall 2021, home test, not hosp; slight fever for 12 hours, fatigue>resolved in 2 days Hyperlipidemia Hypertension Surgical History History of wisdom tooth extraction under local Hx of colonoscopy Family History Grandfather (Paternal) Family hx of colon cancer Other No family history of adverse response to anesthesia Social History Smoking Status: Never smoker Tobacco Type: Smokeless Tobacco (Dip or Chew) Cigarettes Per Day: quit cigars a year ago; Second Hand Exposure: No; Do You Dip or Chew Tobacco: Yes (1 can/1 day; advised); Hx Alcohol Use: Yes Alcohol type: beer Hx Substance Use: No Preferred Language: Kinyarwanda Communication Ability: Effective K[place]man Required: No Beliefs That Will Affect Care: None Current Living Situation: Spouse Current Living Situation Comment: Lives with and 2 daughters Other Information That Helps Us Care for You: No Feels Safe at Home: Yes Safety Concerns: Feels Safe At This Time Assistive Devices: Glasses Review of Systems Review of Systems: As per HPI, all other systems reviewed and negative Physical Exam Physical Exam: GENERAL: Comfortable, obese, pleasant, no respiratory distress SKIN: Normal color, warm HEENT: [place] palpebral conjunctivae, no ptosis, moist buccal mucosa NECK : Supple, no tenderness CHEST : CTA, no tenderness HEART : Irregular, no obvious murmurs ABDOMEN: Some distention, nontender EXTREMITIES : No LE swelling/tenderness, no other conspicuous deformities noted NEUROLOGIC : Coherent, no facial asymmetry, no other gross focality Results & Data Results & Data Vital Signs (Past 12 Hours) Vital Signs Temp Pulse Pulse Resp BP BP Pulse Ox 09/03/24 01:00 167/106 H 97 09/03/24 00:45 73 161/109 H 95 09/03/24 00:45 71 161/109 H 09/03/24 00:30 82 16 144/112 H 94 09/03/24 00:25 92 H 164/117 H 09/03/24 00:12 86 20 97 09/03/24 00:11 93 H 09/03/24 00:03 91 H 18 164/117 H 96 09/02/24 22:36 36.3 C L 105 H 18 152/92 H 97 O2 Del Method 09/03/24 01:00 Room Air 09/03/24 00:45 Room Air 09/03/24 00:45 09/03/24 00:30 Room Air 09/03/24 00:25 09/03/24 00:12 Room Air 09/03/24 00:11 09/03/24 00:03 Room Air 09/02/24 22:36 Room Air Laboratory Results Laboratory Results WBC 9.70 K/ul (4.8-10.8) 09/02/24 22:50 RBC 4.97 M/uL (4.70-6.10) 09/02/24 22:50 Hgb 15.3 g/dl (14.0-18.0) 09/02/24 22:50 Hct 45.4 % (42.0-52.0) 09/02/24 22:50 MCV 91.3 fL (80.0-100.0) 09/02/24 22:50 MCH 30.8 pg (25.0-34.0) 09/02/24 22:50 MCHC 33.7 g/dL (32.0-36.0) 09/02/24 22:50 RDW Std Deviation 40.2 fL (36.4-46.3) 09/02/24 22:50 RDW Coeff of Piyush 12.0 % (11.5-14.5) 09/02/24 22:50 Plt Count 267 K/uL (130-400) 09/02/24 22:50 MPV 10.1 fL (9.4-12.4) 09/02/24 22:50 Immature Gran % (Auto) 0.3 % 09/02/24 22:50 Neut % (Auto) 67.3 % 09/02/24 22:50 Lymph % (Auto) 24.1 % 09/02/24 22:50 [place] % (Auto) 6.1 % 09/02/24 22:50 Eos % (Auto) 1.5 % 09/02/24 22:50 Baso % (Auto) 0.7 % 09/02/24 22:50 Neut # (Auto) 6.52 K/uL (1.40-6.50) H 09/02/24 22:50 Lymph # (Auto) 2.34 K/uL (1.20-3.40) 09/02/24 22:50 [place] # (Auto) 0.59 K/uL (0.11-0.59) 09/02/24 22:50 Eos # (Auto) 0.15 K/uL (0.00-0.50) 09/02/24 22:50 Baso # (Auto) 0.07 K/uL (0.00-0.20) 09/02/24 22:50 Immature Gran # (Auto) 0.03 K/uL (0.01-0.20) 09/02/24 22:50 PT 10.3 Seconds (9.0-12.0) 09/02/24 22:50 INR 0.9 (0.9-1.1) 09/02/24 22:50 APTT 27 Seconds (21-31) 09/02/24 22:50 PTT Ratio 1.0 09/02/24 22:50 D-Dimer 320 ug/L FEU (0-500) 09/02/24 22:50 Sodium 137 mmol/L (136-145) 09/02/24 22:50 Potassium 4.1 mmol/L (3.5-5.1) 09/02/24 22:50 Chloride 105 mmol/L (98-107) 09/02/24 22:50 Carbon Dioxide 23 mmol/L (21-32) 09/02/24 22:50 Anion Gap 9 (3-11) 09/02/24 22:50 BUN 20 mg/dl (6-23) 09/02/24 22:50 Creatinine 0.92 mg/dl (0.6-1.4) 09/02/24 22:50 Est Cr Clr Drug Dosing 106.4 ml/min 09/02/24 22:50 eGFR 97.02 09/02/24 22:50 BUN/Creatinine Ratio 21.7 (10-20) H 09/02/24 22:50 Glucose 136 mg/dl (70-99(Fasting)) H 09/02/24 22:50 Calcium 9.4 mg/dl (8.6-10.3) 09/02/24 22:50 Magnesium 2.3 mg/dl (1.7-2.4) 09/02/24 22:50 Total Bilirubin 0.5 mg/dl (0.2-1.0) 09/02/24 22:50 AST 20 U/L (13-39) 09/02/24 22:50 ALT 25 U/L (7-52) 09/02/24 22:50 Alkaline Phosphatase 79 U/L (34-104) 09/02/24 22:50 Troponin I High Sens 14.0 pg/ml (0-20) 09/02/24 22:50 Total Protein 7.4 gm/dl (6.0-8.3) 09/02/24 22:50 Albumin 4.6 gm/dl (3.4-5.0) 09/02/24 22:50 Globulin 2.8 gm/dl (2.5-4.0) 09/02/24 22:50 Albumin/Globulin Ratio 1.6 (0.9-2) 09/02/24 22:50 Lipase 38 U/L (11-82) 09/02/24 22:50 TSH 1.425 uIu/ml (0.300-4.500) 09/02/24 22:50 Diagnostic Findings Chest x-ray as per my interpretation cardiomegaly EKG as per my interpretation : Rate 100, A-fib, normal axis, T wave abnormalities inferior leads
[2024-09-03] MEDS ORDERED: traMADol HCL 50 MG TABLET PO PRN (02:34)
[2024-09-03] MEDS ORDERED: PROMETHAZINE 6.25 MG/50.25 ML BAG IV PRN (02:34)
[2024-09-03] MEDS ORDERED: LORazepam 0.5 MG TAB PO PRN (02:34)
[2024-09-03 04:08] VITALS: O2SAT 96
[2024-09-03] MEDS: HEPARIN SODIUM/DEXTROSE 25,000 UNITS/500 ML BAG IV SCH (04:08)
[2024-09-03] MEDS: Heparin IV Adult Wt-Based Standard *NO* INITIAL Bolus Protocol IV STA (04:13)
[2024-09-03 07:07] LABS: Estimated Average Glucose 134 mg/dl; Hemoglobin A1C 6.3 % (4.5-5.6)
--- NOTE | 2024-09-03 07:14 | XRay Report ---
XR chest 1V portable CLINICAL HISTORY: Chest pain, nonspecific COMPARISON STUDY: Chest radiograph July 03, 2023. FINDINGS: Lung volumes are normal. Lungs are clear. There is no pneumothorax or pleural effusion. Car diomegaly is unchanged. Mediastinal contours are normal. There is no evidence for pulmonary edema. IMPRESSION: No acute cardiopulmonary findings. Stable cardiomegaly. ACT 112: Negative or not required by law. Electronically signed by: Chris Sutherland M.D. 09/03/2024 7:12 AM
[2024-09-03] MEDS ORDERED: METOPROLOL TARTRATE 25 MG TAB PO SCH (09:00)
[2024-09-03 10:15] LABS: BUN Creatinine Ratio 18.8 (10-20); Calcium 9.1 mg/dl (8.6-10.3); Creatinine Clr Calc Pharmacy 128.4 ml/min; Potassium 4.2 mmol/L (3.5-5.1)
[2024-09-03 10:16] LABS: Basophils # (auto) 0.05 K/uL (0.00-0.20); Basophils % (auto) 0.7 %; Eosinophils # (auto) 0.11 K/uL (0.00-0.50); Eosinophils % (auto) 1.5 %; Hematocrit (blood only) 42.7 % (42.0-52.0); Hemoglobin 14.5 g/dl (14.0-18.0); Immature Granulocytes # (auto) 0.02 K/uL (0.01-0.20); Immature Granulocytes % (auto) 0.3 %; Lymphocytes # (auto) 1.54 K/uL (1.20-3.40); Lymphocytes % (auto) 21.4 %; Mean Corpuscular Hemoglobin 31.4 pg (25.0-34.0); Mean Corpuscular Volume 92.4 fL (80.0-100.0); Mean Platelet Volume 10.4 fL (9.4-12.4); Monocytes # (auto) 0.42 K/uL (0.11-0.59); Monocytes % (auto) 5.8 %; Neutrophils # (auto) 5.06 K/uL (1.40-6.50); Neutrophils % (auto) 70.3 %; Platelet Count 251 K/uL (130-400); RDW Coefficient of Variation 12.2 % (11.5-14.5); RDW Standard Deviation 41.4 fL (36.4-46.3); Red Blood Count 4.62 M/uL (4.70-6.10)
[2024-09-03] MEDS: METOPROLOL TARTRATE 25 MG TAB PO SCH (10:16)
[2024-09-03 10:28] LABS: ANTI-Xa, UFH(UnfractionatedHep 0.41 IU/ml (0.3-0.7)
--- NOTE | 2024-09-03 10:43 | Cardiology Consultation ---
<Statement entered by Yamilex Baca, DO - 09/03/24 16:29> I have reviewed the advanced practitioner's documentation and agree with the plan of care. I accept the responsibility for the associated risk. pt seen in cardiology consultation due to newly diagnosed pAF pt probably has been having brief paf for some time as he has had recurrent palpitations monthly pt converted to SR upon admission i interpreted his echo today and it was normal he denies any symptoms of FAUSTO Recommend discharge on eliquis 5mg BID stop ASA and toprol 25mg daily ok to take an extra toprol as needed for pAF i explained to him the pathophysciology of AF and treatment options recommended he look into purchasing a [employer] mobile as well to monitor heart rhythms i will arrange f/u with me upon discharge pt can be discharged home from a cardiac perspective today I discussed the case and my recommendations with the hospitalist over tiger text and he agreed with my plan Date of Consultation September 03, 2024 Assessment & Plan (1) Atrial fibrillation with rapid ventricular response: (2) Hypertension: Plan Patient admitted to [facility] yesterday with complaints of palpitations and diagnosed with new onset atrial fibrillation with rapid ventricular response. Treated with IV Lopressor and he successfully converted several hours later to NSR Started on IV heparin during admission. EKG without ischemic changes. HS troponin negative. Echocardiogram Revealed normal LVEF of 55 to 60%. Nondilated cardiac chambers and no significant valvular disease. Started on metoprolol tartrate 12.5 mg BID. Transition to metoprolol succinate 25 mg daily on discharge. Recommend transitioning IV heparin to Eliquis 5 mg BID for stroke prophylaxis. IF he fails BB treatment consider future ablation or antiarrhythmic therapy. [id number] score 1 (HTN) Anticoagulation recommended as per his description this was not his first episode. Frequent episodes noted over the last year but never captured. Further recommendations pending evaluation/discussion with Dr. Baca I spent a total of 60 minutes on the date of service in preparation, delivery, and documentation of the care provided to this patient, excluding any time spent in the performance of separately billed services. Susan Morrissey PA-C Department of Cardiology, [facility] This chart was completed in part utilizing Speech Voice Recognition Software. Grammatical errors, random word insertions, pronoun errors, and incomplete sentences are an occasional consequence of this system due to software limitations, ambient noise, and hardware issues. Any formal questions or concerns about the content, text, or information contained within the body of this dictation should be directly addressed to the provider for clarification. History of Present Illness Reason for Consultation: Atrial fibrillation Requesting Physician: [facility] Hospitalist Attending Physician: Dr. Baca History of Present Illness Patient is a 59-year-old male who was admitted to [facility] yesterday afternoon with complaints of palpitations. Diagnosed with atrial fibrillation with rapid ventricular response. Treated with IV lopressor. EKG without ischemic changes. HS troponin negative x1. Electrolytes/labs within normal limits. Started on IV heparin. Converted to NSR overnight. Patient reports history of a "heart murmur" for years. Prior outside echo 10 years ago with normal LVEF and no significant valvular disease. Mild AI noted. Patient reports a long history of palpitations/tachypalpitations where he feels his heart race for several hours at a time and resolve spontaneously. This has been going on for many years. He possibly had up to 5 episodes this year. Always resolved spontaneously.Monitor which demonstrated normal sinus rhythm without concerning arrhythmias. No history of stroke or bleeding issues. At time of consult, patient resting in bed. He denies acute cardiac complaints. Anxious for discharge. He denies recurrent palpitations or tachypalpitations. No chest pain. History includes: HTN Dyslipidemia Allergies Allergy/AdvReac Type Severity Reaction Status Date / Time No Known Allergies Allergy Verified 09/03/24 01:36 Home Medications Medication Instructions Recorded Confirmed Type lisinopril 20 mg tablet 20 mg PO PM 12/08/22 09/03/24 History aspirin 81 mg tablet,delayed 81 mg PO PM 07/03/23 09/03/24 History release apixaban 5 mg tablet (Eliquis) 5 mg PO BID #60 tabs 09/03/24 Rx atorvastatin 40 mg tablet 40 mg PO HS 09/03/24 09/03/24 History metoprolol succinate 25 mg 25 mg PO DAILY #30 tabs 09/03/24 Rx tablet,extended release 24 hr Patient History Medical History History of COVID-19 fall 2021, home test, not hosp; slight fever for 12 hours, fatigue>resolved in 2 days Hyperlipidemia Hypertension Surgical History History of wisdom tooth extraction under local Hx of colonoscopy Family History Grandfather (Paternal) Family hx of colon cancer Other No family history of adverse response to anesthesia Social History Smoking Status: Never smoker Tobacco Type: Smokeless Tobacco (Dip or Chew) Cigarettes Per Day: quit cigars a year ago; Second Hand Exposure: No; Do You Dip or Chew Tobacco: Yes (1 can/1 day; advised); Hx Alcohol Use: Yes Alcohol type: beer Hx Substance Use: No Preferred Language: [place] African Communication Ability: Effective Personal Lines Insurance Advisor Required: No Beliefs That Will Affect Care: None Current Living Situation: Spouse Current Living Situation Comment: Lives with and 2 daughters Other Information That Helps Us Care for You: No Feels Safe at Home: Yes Safety Concerns: Feels Safe At This Time Assistive Devices: Glasses Review of Systems Review of Systems: All systems reviewed & are unremarkable except as noted in HPI & below Physical Exam Constitutional: WD/WN, vitals as above well developed; no acute distress Neck: trachea midline, no thyromegaly Respiratory: normal respiratory effort, lungs clear to auscultation Cardiovascular: Rate/Rhythm: regular rate and regular rhythm Heart Sounds: + murmur (I/ systolic murmur LSB) Vessels: no JVD Extremities: no edema Gastrointestinal (Abdomen): normal bowel sounds, soft, nontender, no hepatosplenomegaly Skin: no rashes, warm and dry Neurologic: PERRL, EOMI, accommodation nl, no face palsy, no dysarthria Results & Data Vital Signs (Past 12 Hours) Vital Signs Temp Pulse Pulse Resp BP BP Pulse Ox 09/03/24 07:34 36.4 C L 63 18 124/77 96 09/03/24 06:00 62 09/03/24 04:01 36.7 C 70 18 129/86 96 09/03/24 04:00 09/03/24 03:55 36.7 C 70 18 129/86 96 09/03/24 03:45 69 09/03/24 03:03 86 16 124/93 95 09/03/24 02:30 74 17 129/100 97 09/03/24 02:00 72 19 133/102 H 95 09/03/24 01:37 74 18 131/76 93 09/03/24 01:15 132/98 95 09/03/24 01:00 167/106 H 97 09/03/24 00:45 73 161/109 H 95 09/03/24 00:45 71 161/109 H 09/03/24 00:30 82 16 144/112 H 94 09/03/24 00:25 92 H 164/117 H 09/03/24 00:12 86 20 97 09/03/24 00:11 93 H 09/03/24 00:03 91 H 18 164/117 H 96 O2 Del Method 09/03/24 07:34 Room Air 09/03/24 06:00 09/03/24 04:01 Room Air 09/03/24 04:00 Room Air 09/03/24 03:55 Room Air 09/03/24 03:45 09/03/24 03:03 Room Air 09/03/24 02:30 Room Air 09/03/24 02:00 Room Air 09/03/24 01:37 Room Air 09/03/24 01:15 Room Air 09/03/24 01:00 Room Air 09/03/24 00:45 Room Air 09/03/24 00:45 09/03/24 00:30 Room Air 09/03/24 00:25 09/03/24 00:12 Room Air 09/03/24 00:11 09/03/24 00:03 Room Air Laboratory Results Cardiac Enzymes 09/02/24 Range/Units 22:50 AST 20 (13-39) U/L Troponin I High Sens 14.0 (0-20) pg/ml Coagulation 09/02/24 Range/Units 22:50 PT 10.3 (9.0-12.0) Seconds APTT 27 (21-31) Seconds CBC 09/02/24 09/03/24 Range/Units 22:50 09:43 WBC 9.70 7.20 (4.8-10.8) K/ul RBC 4.97 4.62 L (4.70-6.10) M/uL Hgb 15.3 14.5 (14.0-18.0) g/dl Hct 45.4 42.7 (42.0-52.0) % Plt Count 267 251 (130-400) K/uL Neut # (Auto) 6.52 H 5.06 (1.40-6.50) K/uL Lymph # (Auto) 2.34 1.54 (1.20-3.40) K/uL [place] # (Auto) 0.59 0.42 (0.11-0.59) K/uL Eos # (Auto) 0.15 0.11 (0.00-0.50) K/uL Baso # (Auto) 0.07 0.05 (0.00-0.20) K/uL Comprehensive Metabolic Panel 09/02/24 09/03/24 Range/Units 22:50 09:43 Sodium 137 138 (136-145) mmol/L Potassium 4.1 4.2 (3.5-5.1) mmol/L Chloride 105 106 (98-107) mmol/L Carbon Dioxide 23 27 (21-32) mmol/L BUN 20 15 (6-23) mg/dl Creatinine 0.92 0.80 (0.6-1.4) mg/dl Glucose 136 H 110 H (70-99(Fasting)) mg/dl Calcium 9.4 9.1 (8.6-10.3) mg/dl AST 20 (13-39) U/L ALT 25 (7-52) U/L Alkaline Phosphatase 79 (34-104) U/L Total Protein 7.4 (6.0-8.3) gm/dl Albumin 4.6 (3.4-5.0) gm/dl Intake and Output 09/02/24 09/03/24 09/03/24 22:59 06:59 14:59 Intake Total 740 / 740 90.417 / 90.417 Balance 740 / 740 90.417 / 90.417 Intake: IV 500 / 500 90.417 / 90.417 Heparin Sodium/Dextrose 25,000 90.417 / 90.417 units In 500 ml @ 1,550 UNITS/ HR 31 mls/hr IV .Q16H8M ANNE Rx# :[id number] Sodium Chloride 0.9% 500 ml @ 500 / 500 999 mls/hr IV .Q31M STA Rx#: [id number] Oral 240 / 240 Other: Weight 95.9 kg 106.367 kg Weight Measurement Method Chair Scale Built in [facility] Diagnostic Findings Telemetry reviewed: Patient is currently normal sinus rhythm in the 60s. He converted from atrial fibrillation to normal sinus rhythm around 3:45 AM when he was transferred from the emergency department up to telemetry. Patient was off monitor when he converted. EKG reviewed from admission dated 09/02/24 at 22:54: Afib with ventricular rate of 99 bmp T wave inversion in III, AVF EKG reviewed from admission dated 09/13/24: NSR with 1st degree AV block T wave inversion no longer evident in AVF compared with prior, Afib has resolved Echo pending Chest xray report reviewed dated 09/02/24: IMPRESSION: No acute cardiopulmonary findings. Stable cardiomegaly. Prior outside data reviewed: ZIO monitor report reviewed dated February 2023: CONCLUSIONS: Duration: 7 days, 9 hours Patient had a min HR of 45 bpm, max HR of 164 bpm, and avg HR of 77 bpm. Predominant underlying rhythm was Sinus Rhythm. Isolated SVEs were rare (<1.0%), SVE Couplets were rare (<1.0%), and SVE Triplets were rare (<1.0%). Isolated VEs were rare (<1.0%, 6132), VE Couplets were rare (<1.0%, 82), and VE Triplets were rare (<1.0%, 4). Ventricular Bigeminy and Trigeminy were present. No symptoms reported. Outpatient echocardiogram report reviewed dated August 2014: Interpretation Summary The examination is adequate to evaluate the referral indication. The left ventricular cavity size is normal. The qualitative LV ejection fraction is 55-59% (normal). The left ventricular wall motion is normal. The right ventricular systolic function is normal as assessed by tricuspid annular plane systolic excursion (TAPSE) (normal >1.5 cm). The left atrium is normal sized. The right atrial size is normal. Mild aortic valve regurgitation is present. The aortic root is normal sized. Medications Administered Current Inpatient Medications Atorvastatin Calcium (Atorvastatin 40 Mg Tab) 40 mg PO HS ANNE Stop: 10/03/24 20:59 Promethazine HCl (Phenergan) 6.25 mg in 50.25 mls @ 201 mls/hr IV Q6H PRN PRN Reason: Nausea And Vomiting Stop: 10/03/24 02:33 Heparin Sodium/Dextrose (Heparin Sodium/Dextrose) 25,000 units in 500 mls @ 31 mls/hr IV .Q16H8M [facility]; Protocol Stop: 10/03/24 02:59 Last Titration: 09/03/24 07:03 Dose: 1,550 units/hr, 31 mls/hr Lisinopril (Lisinopril 20 Mg Tab) 20 mg PO PM [facility] Stop: 10/03/24 20:59 Lorazepam (Lorazepam 0.5 Mg Tab) 0.5 mg PO TID PRN PRN Reason: Anxiety Stop: 10/03/24 02:33 Metoprolol Tartrate (Metoprolol Tartrate 25 Mg Tab) 12.5 mg PO BID [facility] Stop: 10/03/24 08:59 Last Admin: 09/03/24 10:16 Dose: 12.5 mg Tramadol HCl (Tramadol Hcl 50 Mg Tablet) 25 - 50 mg PO Q4H PRN PRN Reason: Pain Stop: 10/03/24 02:33
[2024-09-03 11:14] VITALS: BP 118/75; RESP 16; TEMP 98.1
--- NOTE | 2024-09-03 11:49 | Electrocardiogram Report ---
Test Reason : Blood Pressure : */* mmHG Vent. Rate : 62 BPM Atrial Rate : 62 BPM P-R Int : 224 ms QRS Dur : 98 ms QT Int : 408 ms P-R-T Axes : 10 11 11 degrees QTcB Int : 414 ms Sinus rhythm with 1st degree A-V block Otherwise normal ECG When compared with ECG of 02-Sep-2024 22:54, (unconfirmed) Sinus rhythm has replaced Atrial fibrillation Vent. rate has decreased by 37 bpm T wave inversion less evident in Inferior leads Confirmed by Lew Esquivel ([id number]) on 09/03/2024 11:49:06 AM Referred By: REFERRED SELF Confirmed By: Lew Esquivel
--- NOTE | 2024-09-03 14:07 | Electrocardiogram Report ---
Test Reason : Blood Pressure : */* mmHG Vent. Rate : 99 BPM Atrial Rate : * BPM P-R Int : * ms QRS Dur : 94 ms QT Int : 330 ms P-R-T Axes : * -4 -6 degrees QTcB Int : 423 ms Atrial fibrillation Abnormal ECG When compared with ECG of 03-Jul-2023 18:53, Atrial fibrillation has replaced Sinus rhythm Inverted T waves have replaced nonspecific T wave abnormality in Inferior leads Confirmed by Lew Esquivel ([id number]) on 09/03/2024 2:06:27 PM Referred By: REFERRED SELF Confirmed By: Lew Esquivel
[2024-09-03] MEDS ORDERED: Nursing to Pharmacy Communication SCH (15:00)
--- NOTE | 2024-09-03 15:50 | Discharge Summary ---
Discharge Summary Date of Service September 03, 2024 Principal Dx & Hospital Course #1 = Principal Diagnosis (1) Atrial fibrillation with rapid ventricular response: (2) Hypertension: (3) Hyperlipidemia: Plan This is a 59-year-old male with PMH of mild AR, hypertension, hyperlipidemia, smokeless tobacco use and other medical problems listed below who was admitted overnight for A-fib with RVR with heart rate in the 130s. Denies any formal diagnosis of A fib in the past but has had similar palpitations in the past that come on after periods of exertion and then resolve within a few hours. Per telemetry review, patient converted to normal sinus rhythm around 0345 and all symptoms resolved. Repeat EKG this morning showing normal sinus rhythm with first-degree AV block. Evaluated by cardiology who recommend Toprol 25 mg d aily. [id number] score of 1 and transitioned from IV heparin to Eliquis 5 mg twice daily for stroke prevention. Aspirin discontinued. A1c prediabetic range of 6.3 - discussed healthy diet and instructed to repeat A1c in [address] Baca to coordinate cardiology follow-up within 1 month. Patient hemodynamically stable and comfortable at time of discharge home. Notes For Next Care Provider Afib with RVR Follow up with Dr. Baca in one month Medication Changes From Visit Toprol 25mg daily, Eliquis 5 BID Admission HPI Per Admitting Provider History obtained from patient and records. Medical history significant for mild AR, hypertension, hyperlipidemia, past tobacco abuse Patient noted palpitations yesterday afternoon. Denies chest pain, SOB, cough, headache symptoms. 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 No prior episodes as per patient. Heartbeat noted to be fast on home BP machine. Heart rate 120s. Denies inordinate caffeine intake, OTC NSAID intake. Powdered electrolyte beverage consumption the last couple of months. Patient noted to be in rapid A-fib upon arrival at the ER, heart rate 110s. Highest SBP of 170s. IV Lopressor administered at the ER. 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 Admission Exam Per Admitting Provider GENERAL: Comfortable, obese, pleasant, no respiratory distress SKIN: Normal color, warm HEENT: [place] palpebral conjunctivae, no ptosis, moist buccal mucosa NECK : Supple, no tenderness CHEST : CTA, no tenderness HEART : Irregular, no obvious murmurs ABDOMEN: Some distention, nontender EXTREMITIES : No LE swelling/tenderness, no other conspicuous deformities noted NEUROLOGIC : Coherent, no facial asymmetry, no other gross focality Discharge Exam Gen: WD/WN, NAD, sitting in bed, A&Ox3 HEENT: Normocephalic, atraumatic, conjunctivae moist, sclerae anicteric, mucous membranes moist Lung: Clear to Auscultation bilaterally, no wheezes/rales/rhonchi Heart: Regular rate, regular rhythm, no murmurs, rubs, or gallops Abdomen: Soft, NT, ND +BS x 4 Extremities: no edema Skin: Warm, no rash Updated Medication List Medication Instructions Recorded Confirmed Type lisinopril 20 mg tablet 20 mg PO PM 12/08/22 09/03/24 History apixaban 5 mg tablet (Eliquis) 5 mg PO BID #60 tabs 09/03/24 Rx atorvastatin 40 mg tablet 40 mg PO HS 09/03/24 09/03/24 History metoprolol succinate 25 mg 25 mg PO DAILY #30 tabs 09/03/24 Rx tablet,extended release 24 hr Hospital Stay Data Consultations 09/03/24 01:52 ED Decision to Admit Stat 09/03/24 02:34 Consult Cardiology Routine 09/03/24 03:55 Consult Cardiology Routine Pending Results Patient Have Any Pending Studies at Discharge: No Discharge Instructions Given to Patient (Per Discharging Provider) MEDICATION CHANGES: Metoprolol succinate 25 mg daily for heart rhythm control Eliquis 5mg twice a day for stroke prevention Stop taking aspirin 81mg SUMMARY OF TEST RESULTS: You were admitted to hospital secondary to atrial fibrillation and converted back to normal sinus rhythm overnight. Resting echocardiogram revealed normal EF of 55-60% and no significant valvular disease Hgb a1c 6.3 - prediabetic range RECOMMENDATIONS FOR FOLLOW-UP: Follow up with PCP as scheduled. Cardiology to coordinate follow up appointment in [address] Baca. Continue medication regimen as scheduled aside from changes noted above. Please avoid other anti-inflammatory drugs (like aspirin, ibuprofen, motrin, etc) while taking Eliquis as they can increase bleeding risk. Please follow up with PCP for recheck of hgb a1c in 3 months (prediabetes education provided) OTHER INSTRUCTIONS: Seek medical attention if you have: * temperature above 101 * chest pain or trouble breathing * abdominal pain, nausea, vomiting * diarrhea, dark stools or bloody stools * any unanswered questions or concerns Call 911 if symptoms are severe. Please take good care of yourself. Call if you have any questions or problems. You can reach a [facility] hospitalist on duty at [facility] 24 hours a day by calling [phone]. Total Time Total Time Spent Total Time Spent (In Minutes): 40
[2024-09-03 16:05] VITALS: PULSE 63
[2024-09-03] MEDS: APIXABAN 5 MG TABLET PO ONE (16:09)
[2024-09-03] MEDS ORDERED: lisinopril 20 MG TAB PO SCH (21:00)
[2024-09-03] MEDS ORDERED: ATORVASTATIN 40 MG TAB PO SCH (21:00)
== END 2024-09-03 16:32 | disposition home or self-care (01) | DRG 310 ==
LOC: ED 22:34 → 2E 09-03 02:02